=== PATIENT | female | born 1940 | race Caucasian/White ===

== ENCOUNTER 2024-06-01 10:01 | Emergency (ER) | payer MEDICARE ==
[~2024-06-01] VITALS: Ht 157.5 cm; Wt 65.0 kg
[2024-06-01 10:04] VITALS: TEMP 97.9
[2024-06-01 10:18] LABS: BASO # 0.1 K/mm3 (0.0-0.2); BASO % 0.7 % (0.0-2.0); EOS # 0.1 K/mm3 (0.0-0.7); GRAN # 4.8 K/mm3 (1.4-6.5); GRAN % 57.9 % (42.2-75.2); HEMATOCRIT 48.8 % (37.0-47.0); HEMOGLOBIN 14.7 g/dl (12.5-16.0); LYMPH # 2.7 K/mm3 (1.2-3.4); LYMPH % 32.2 % (20.0-51.0); MEAN CELL VOLUME 87 fl (80.0-100.0); MEAN CORPUSCULAR HEMOGLOBIN 26 pg (27-31); MEAN CORPUSCULAR HGB CONC 30 g/dl (33.0-37.0); MEAN PLATELET VOLUME 10.8 fl (7.4-10.4); MONO # 0.6 K/mm3 (0.1-0.6); MONO % 7.7 % (1.7-9.3); PLATELET COUNT 336 K/mm3 (130-400); REDCELL DISTRIBUTION WIDTH-CV 13.8 % (11.5-14.5)
[2024-06-01 10:30] LABS: INR 1.1 (0.8-3.0); PROTHROMBIN TIME 12.4 SECONDS (9.7-12.8)
[2024-06-01] MEDS ORDERED: fentaNYL 50 MCG/ML 2 ML VIAL IV ONE ×2 (10:30→12:00)
[2024-06-01 11:06] LABS: ALBUMIN 3.5 g/dL (3.4-4.8); BILIRUBIN,TOTAL 0.5 mg/dL (0.2-1.2); CALCIUM 9.3 mg/dL (8.4-10.2); CREATININE, serum 1.04 mg/dL (0.57-1.11); POTASSIUM 4.8 mEq/L (3.5-4.5); TOTAL PROTEIN 5.5 g/dl (6.2-8.1)
[2024-06-01] MEDS ORDERED: Ondansetron 4 MG/2 ML VIAL IV ONE (12:00)
[2024-06-01] MEDS ORDERED: Baclofen 10 MG TAB PO ONE (13:00)
[2024-06-01] MEDS ORDERED: LIORESAL 1010 MG/TAB PO (13:06)
[2024-06-01] MEDS ORDERED: LIDODERM 5% PATC1 EA TP (13:12)
[2024-06-01 13:16] VITALS: BP 118/62; PULSE 78
== END 2024-06-01 13:40 | disposition home or self-care (01) ==
LOC: COL.ER 10:01
PROVIDERS: Nurse Practitioner
DX: S20.211A Contusion of right front wall of thorax, initial encounter (principal); Z79.01 Long term (current) use of anticoagulants; W10.9XXA Fall (on) (from) unspecified stairs and steps, initial encounter; Y93.01 Activity, walking, marching and hiking
CPT/HCPCS: J2405; J3010